=== PATIENT | female | born 1975 | race Two or more races ===

== ENCOUNTER 2022-07-12 17:43 | Inpatient (IN) ==
[2022-07-12 21:15] LABS: Hematocrit 30.9 % (35-45); Mean Corpuscular Hemoglobin 24.1 pg (27-33); Mean Corpuscular Hgb Conc 32.3 g/dL (31-36); Mean Corpuscular Volume 74.6 fL (80-97); Platelet Count 388 10^3/uL (150-450); Red Blood Count 4.14 10^6/uL (3.63-4.92); Red Cell Distribution Width 17.2 % (12-17); White Blood Count 8.6 10^3/uL (3.8-11.8)
[2022-07-12 21:21] LABS: Urine Appearance Clear; Urine Bilirubin Negative (Negative); Urine Blood Negative (Negative); Urine Color Colorless; Urine Glucose Negative (Negative); Urine Ketones Negative (Negative); Urine Nitrite Negative (Negative); Urine Protein Negative (Negative); Urine Specific Gravity 1.001 (1.002-1.030); Urine Urobilinogen Negative (Negative)
[2022-07-12 21:55] LABS: ABS Eosinophils 0.1 10^3/uL (0.0-0.5); ABS Lymphocytes 2.1 10^3/uL (1.0-4.8); ABS Monocytes 0.6 10^3/uL (0.0-0.9); ABS Neutrophils 5.8 10^3/uL (1.5-7.6); ABS Nucleated RBC 0.01 10^3/ul; Lymphocyte % 23.9 %; Nucleated Red Blood Cells % 0.1 /100 WBC (0.0-0.4)
[2022-07-12 21:57] LABS: ALT 15 U/L (7-52); AST 15 U/L (13-39); Albumin 4.1 g/dL (3.2-5.2); Albumin/Globulin Ratio 1.5 (1-3); Alkaline Phosphatase 61 U/L (35-149); Anion Gap 8 mmol/L (2-16); Blood Urea Nitrogen 11 mg/dL (6-24); C Reactive Protein 13.18 mg/L (<8.01); CO2 Carbon Dioxide 23 mmol/L (22-32); Chloride 108 mmol/L (101-111); Creatinine, Serum 0.53 mg/dL (0.51-0.95); Globulin 2.7 g/dL (2-4); Glucose 88 mg/dL (70-100); Lipase 27 U/L (11.0-82.0); Potassium 3.8 mmol/L (3.5-5.0); Sodium 139 mmol/L (135-145); Total Protein 6.8 g/dL (6.4-8.9); eGFR CKD-EPI 113.3 (>60)
[2022-07-12] MEDS ORDERED: Iohexol 350 (CONTRAST) 500 ML MDV IV ONE (22:03)
[2022-07-12] MEDS ORDERED: Pantoprazole VIAL 40 MG VIAL IV ONE (23:16)
[2022-07-12] MEDS ORDERED: Piperacillin/Tazobac ADVAN 3.375 GM in NS 0.9% 100 ml BAG 100 ML IV ONE (23:44)
[2022-07-12] MEDS ORDERED: NS 0.9% 1000 ml BAG 1,000 ML IV SCH (23:45)
[2022-07-12] MEDS ORDERED: HYDROmorphone 1 MG/1 ML SYRINGE IV SLOW PU PRN (23:51)
[2022-07-12] MEDS ORDERED: Ondansetron 4 mg VIAL 2 MG/ML 2 ml VIAL IV PRN (23:51)
[2022-07-12] MEDS ORDERED: Ondansetron 4 mg VIAL 2 MG/ML 2 ml VIAL IV ONE (23:53)
[2022-07-12] MEDS ORDERED: Lactated Ringers 1000 ml BAG 1,000 ML IV ONE (23:54)
[2022-07-13] MEDS ORDERED: Piperacillin/Tazobactam VIAL 3.375 GM in NS 0.9% 100 ml BAG 100 ML IVPB SCH (04:00)
[2022-07-13] MEDS: ZOSYN 3.375 GM Q8H per EXTENDED INFUSION IV SCH ×4 (05:57→22:21)
[2022-07-13 08:53] LABS: HCG Pregnancy < 0.60 mIU/mL
[2022-07-13] MEDS ORDERED: Rocuronium 50 mg VIAL 10 mg/ml 5 ml VIAL (50 mg) ONE (14:41)
[2022-07-13] MEDS ORDERED: Propofol 10 MG/ML 20 ML BTL ONE (14:42)
[2022-07-13] MEDS ORDERED: Midazolam 2 mg/2 ml VIAL 1 mg/ml 2 ml VIAL (2 mg) ONE (14:42)
[2022-07-13] MEDS ORDERED: fentaNYL 100 mcg/2 ml 50 MCG/ML VIAL ONE (14:42)
[2022-07-13] MEDS ORDERED: Lidocaine 2% PF 5 ML VIAL ONE (14:42)
[2022-07-13] MEDS ORDERED: Bupivacaine 0.25% EPI 200,000 30 ML SDV ONE (14:43)
[2022-07-13] MEDS ORDERED: Piperacillin/Tazobac 3.375 GM BAG ONE (15:21)
[2022-07-13] MEDS ORDERED: Naloxone 0.4 mg VIAL 0.4 mg/ml 1 ml VIAL IV PRN (15:51)
[2022-07-13] MEDS ORDERED: HYDROmorphone 1 MG/1 ML SYRINGE IV PRN (15:51)
[2022-07-13] MEDS ORDERED: fentaNYL 100 mcg/2 ml 50 MCG/ML VIAL IV PRN (15:51)
[2022-07-13] MEDS ORDERED: oxyCODONE/Acetamin 5/325 mg TAB PO PRN (19:21)
[2022-07-14] MEDS: ZOSYN 3.375 GM Q8H per EXTENDED INFUSION IV SCH ×2 (01:02→05:47)
[2022-07-14 11:26] VITALS: BP 137/76
== END 2022-07-14 12:40 | disposition home or self-care (01) | DRG 419 ==
LOC: ED 17:43 → EDHOLD 23:51 → UNDODISIN 07-13 12:46 → SSU 07-13 17:03
PROVIDERS: ADMIT Surgery; ATTEND Surgery